=== PATIENT | male | born 1980 | race Caucasian/White ===

== ENCOUNTER 2018-03-16 07:36 | Emergency (ER) | payer MEDICAID, OTHER ==
[2018-03-16 07:41] VITALS: RESP 16
[2018-03-16] MEDS ORDERED: ORPHENADRINE 30 MG/ML 2 ML VIAL IM STA (08:09)
[2018-03-16] MEDS ORDERED: KETOROLAC 30 MG/ML 1 ML VIAL IM STA (08:09)
--- NOTE | 2018-03-16 08:12 | ED ---
Extremity Problem HPI - General Chief complaint: Extremity Problem,Nontraumatic Stated complaint: lt leg pain Time Seen by Provider: 03/16/18 07:59 Source: patient, RN notes reviewed, old records reviewed Mode of arrival: wheelchair Limitations: no limitations - History of Present Illness Initial comments: 37-year-old male presents emergency room today chief complaint of left leg pain. Reports his been going on for the past 2 weeks. Patient states it feels like there is a clenching sensation in the back of his leg. Patient reports that he's had no major swelling. Seems to be worse over the past day. He's been taking Motrin which has some relief. No falls or trauma. No history of back pain. Pain seems to be exacerbated with movement. He reports the pain shoots down the back of her leg into the calf. Patient reports no history of blood clots.Patient denies any recent fever, chills, shortness of breath, chest pain, back pain, abdominal pain, nausea vomiting, numbness or tingling, dysuria or hematuria, constipation or diarrhea, headaches or visual changes, or any other current symptoms - Related Data Home Medications Medication Instructions Recorded Confirmed Ibuprofen [Motrin Ib] 400 mg PO Q6H PRN 03/16/18 03/16/18 Previous Rx's Medication Instructions Recorded Cyclobenzaprine [Flexeril] 10 mg PO TID #12 tab 03/16/18 Dexamethasone 0.75 mg PO DAILY #12 tab 03/16/18 traMADol HCl [Ultram] 50 mg PO Q6HR PRN 3 Days #12 tab 03/16/18 Allergies Allergy/AdvReac Type Severity Reaction Status Date / Time No Known Allergies Allergy Verified 03/16/18 09:37 Review of Systems ROS Statement: Those systems with pertinent positive or pertinent negative responses have been documented in the HPI. ROS Other: All systems not noted in ROS Statement are negative. Past Medical History Past Medical History: Diabetes Mellitus Additional Past Medical History / Comment(s): kidney stones History of Any Multi-Drug Resistant Organisms: None Reported Past Surgical History: No Surgical Hx Reported Past Psychological History: No Psychological Hx Reported Smoking Status: Never smoker Past Alcohol Use History: None Reported Past Drug Use History: None Reported General Exam - General Exam Comments Initial Comments: 37-year-old male. Alert and oriented. No acute distress. Limitations: no limitations General appearance: alert, in no apparent distress Head exam: Present: atraumatic, normocephalic, normal inspection Eye exam: Present: normal appearance, PERRL, EOMI. Absent: scleral icterus, conjunctival injection, periorbital swelling ENT exam: Present: normal exam, normal oropharynx, mucous membranes moist Neck exam: Present: normal inspection. Absent: tenderness, meningismus, lymphadenopathy Respiratory exam: Present: normal lung sounds bilaterally. Absent: respiratory distress, wheezes, rales, rhonchi, stridor Cardiovascular Exam: Present: regular rate, normal rhythm, normal heart sounds. Absent: systolic murmur, diastolic murmur, rubs, gallop, clicks GI/Abdominal exam: Present: soft, normal bowel sounds. Absent: distended, tenderness, guarding, rebound, rigid Extremities exam: Present: normal inspection, full ROM, normal capillary refill. Absent: tenderness, pedal edema, joint swelling, calf tenderness Left Upper Leg exam: Present: tenderness (Over the posterior aspect of the thigh.). Absent: normal inspection Knee exam: Present: normal inspection, tenderness (Popliteal fossa.) Lower Leg exam: Present: normal inspection, full ROM Ankle exam: Present: normal inspection, full ROM Neurovascular tendon exam: Present: no vascular compromise Back exam: Present: normal inspection Neurological exam: Present: alert, oriented X3, CN II-XII intact Psychiatric exam: Present: normal affect, normal mood Course Vital Signs 03/16/18 03/16/18 07:39 10:18 Temperature 98.5 F 97 F L Pulse Rate 75 64 Respiratory 16 16 Rate Blood Pressure 140/75 125/66 O2 Sat by Pulse 99 98 Oximetry Medical Decision Making - Medical Decision Making 37-year-old male presents emergency room today chief complaint of left leg pain. Reports his been going on for the past 2 weeks. Patient states it feels like there is a clenching sensation in the back of his leg. Patient reports that he's had no major swelling. Seems to be worse over the past day. He's been taking Motrin which has some relief. No falls or trauma. No history of back pain. Denies saddle anesthesias, denies peripheral paresthesias. Patient has normal pulses and full ROM of left leg, pain is worse with movement. Patient underwent US which is negative for DVt. Patient pain seems to be similiar to sciatic nerve pattern, lumar spine xray obtained and shows evidence of DDD. Patient informed of results. REports some improvement after toradol and norflex. Will DC with spine specialty referral and with pain and muslce relaxer medication. Return parameters discussed. - Radiology Data Radiology results: report reviewed US is negative for DVT. Lumbar spine xray shows diffuse DDD. 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 Patient recommended do heat and ice to the back of the leg and spine. Return to emergency department if any alarming signs or symptoms occur. Take the medication as prescribed. Prescriptions: Cyclobenzaprine [Flexeril] 10 mg PO TID #12 tab Dexamethasone 0.75 mg PO DAILY #12 tab traMADol HCl [Ultram] 50 mg PO Q6HR PRN 3 Days #12 tab PRN Reason: Pain Is patient prescribed a controlled substance at d/c from ED?: No When asked, does pt state using other controlled substances?: No If prescribed controlled substance>3 days was MAPS reviewed?: No If opioid is for acute pain is fill amount 7 days or less?: No If Rx opioid, was Start Talking consent form obtained?: No Referrals: None,Stated [Primary Care Provider] - 1-2 days Amador Spain MD [STAFF PHYSICIAN] - 1-2 days Time of Disposition: 09:55
--- NOTE | 2018-03-16 09:13 | US ---
EXAMINATION TYPE: US venous doppler duplex LE LT DATE OF EXAM: 03/16/2018 8:58 AM COMPARISON: NONE CLINICAL HISTORY: 37-year-old male Pain. Left leg pain x 2-3 weeks but has been getting worse. No sw elling or redness. No hx of blood clots. No blood thinners. No injury. SIDE PERFORMED: Left TECHNIQUE: The lower extremity deep venous system is examined utilizing real time linear array sonog [place] with graded compression, doppler sonography and color-flow sonography. FINDINGS: VESSELS IMAGED: External Iliac Vein (EIV) Common Femoral Vein Deep Femoral Vein Greater Saphenous Vein * Femoral Vein Popliteal Vein Small Saphenous Vein * Proximal Calf Veins (* superficial vessels) Left Leg: Negative for DVT IMPRESSION: No evidence for DVT within the left lower extremity imaged from the groin to the upper calf.
--- NOTE | 2018-03-16 09:29 | XR ---
Lumbar spine HISTORY: Pain, Left leg pain 3 views of the lumbar spine No comparisons Lumbar vertebral bodies show preserved height, alignment, and bone mineralization. Loss of disc heigh t present at L5-S1. Mild spondylosis. Sclerosis present in the posterior elements suggests facet arth ropathy. Superior endplate deformity of L2 may represent Schmorl's node. Loss of disc height also pre sent L1-2. IMPRESSION: Degenerative disc disease and facet arthropathy.
[2018-03-16] MEDS ORDERED: CYCLOBENZAPRINE 10MG STARTER 3 TAB BTL PO STA (10:03)
[2018-03-16] MEDS ORDERED: traMADol 50 MG STARTER PACK 3 TAB BTL PO STA (10:03)
[2018-03-16 10:19] VITALS: BP 125/66; PULSE 64; TEMP 97
== END 2018-03-16 10:23 | disposition home or self-care (01) ==
LOC: EC 07:36
DX: M51.16 Intervertebral disc disorders with radiculopathy, lumbar region (principal); Z87.442 Personal history of urinary calculi
CPT/HCPCS: 72100; 93971; 99284; 96372 ×2; J2360; J1885

== ENCOUNTER → 2018-03-20 | Outpatient (CLI) | payer MEDICAID ==
--- NOTE | 2018-03-21 10:06 | MR ---
EXAMINATION TYPE: MR lumbar spine wo con DATE OF EXAM: 03/20/2018 COMPARISON: Plain film 03/16/2018 HISTORY: Left leg pain/ low back pain x3 weeks TECHNIQUE: Multiplanar, multisequence images of the lumbar spine were acquired. L1-L2: Loss of disc height signal is compatible with disc desiccation and degenerative disc disease, there is mild Schmorl node formation, no significant foraminal encroachment, mild anterior mass effec t on the thecal sac L2-L3: Loss of disc height and signal is present compatible with disc desiccation and degenerative di sc disease, posterior broad-based disc bulge causes anterior mass effect on the thecal sac, mild cent ral canal stenosis. No significant foraminal encroachment. L3-L4: Posterior broad-based disc bulge causes mild anterior mass effect on the thecal sac. No signif icant foraminal encroachment or central stenosis. There is some facet arthropathy change. L4-L5: Posterior broad-based disc bulge causes minimal anterior mass effect on the thecal sac. Facet arthropathy with hypertrophy ligamentum flavum encroaches on the lateral recesses. L5-S1: There is loss of disc height and signal at L5-S1, left lateral disc herniation causes anterola teral mass effect on the thecal sac, left S1 nerve root. No significant central canal stenosis. Lumbar segments are intact. No paraspinal masses are identified. Conus medullaris has a normal appe arance. There is a spinal curvature. IMPRESSION: Disc herniation, correlate for left S1 radiculopathy. Multilevel degenerative disc disease, facet art hropathy.
== END | disposition home or self-care (01) ==
LOC: RADMRIMAIN 20:21
PROVIDERS: ATTEND Orthopaedic Surgery Orthopaedic Surgery of the Spine
DX: M51.27 Other intervertebral disc displacement, lumbosacral region (principal); M51.36 Other intervertebral disc degeneration, lumbar region; M46.96 Unspecified inflammatory spondylopathy, lumbar region
CPT/HCPCS: 72148

== ENCOUNTER 2019-04-15 11:00 | Emergency (ER) | payer MEDICAID, OTHER ==
[2019-04-15 11:06] VITALS: BP 141/91; PULSE 79; RESP 18; TEMP 97.9
[2019-04-15] MEDS ORDERED: DIPH,PERTUS(ACELL)TETVAC-LF 0.5 ML VIAL IM ONE (11:10)
[2019-04-15] MEDS ORDERED: WATER FOR IRRIG, STERILE 1,000 ML BTL IRRIGATION ONE (11:10)
[2019-04-15] MEDS ORDERED: LIDOCAINE 1% INJ 10MG/ML (20 ML MDV) SQ STA (11:10)
--- NOTE | 2019-04-15 12:03 | ED ---
General Adult HPI - General Chief complaint: Wound/Laceration Stated complaint: [facility] - finger lac Time Seen by Provider: 04/15/19 11:07 Source: patient, RN notes reviewed, old records reviewed Mode of arrival: ambulatory Limitations: no limitations - History of Present Illness Initial comments: 39-year-old male patient, no pertinent past medical history presents to ED with right thumb laceration. Patient works a he was using a razor blade to cut a car decal when slipped slicing the thumb pad of his right hand. Patient reports that razor blade did not break. Patient did not know date of last tetanus shot. Patient denies any other complaints at this time. Systemic: Pt denies fatigue, fever/chills, rash. Pt denies weakness, night sweats, weight loss. Neuro: Pt denies headache, visual disturbances, syncope or pre-syncope. HEENT: Pt denies ocular discharge or irritation, otalgia, rhinorrhea, pharyngitis or notable lymphadenopathy. Cardiopulmonary: Pt denies chest pain, SOB, heart palpitations, dyspnea on exertion. Abdominal/GI: Pt denies abdominal pain, n/v/d. : Pt denies dysuria, burning w/ urination, frequency/urgency. Denies new onset urinary or bowel incontinence. MSK: Pt denies myalgia, loss of strength or function in extremities. Neuro: Pt denies new onset weakness, paresthesias. - Related Data Home Medications Medication Instructions Recorded Confirmed Ibuprofen [Motrin Ib] 400 mg PO Q6H PRN 03/16/18 03/16/18 Previous Rx's Medication Instructions Recorded Cyclobenzaprine [Flexeril] 10 mg PO TID #12 tab 03/16/18 Dexamethasone 0.75 mg PO DAILY #12 tab 03/16/18 traMADol HCl [Ultram] 50 mg PO Q6HR PRN 3 Days #12 tab 03/16/18 Allergies Allergy/AdvReac Type Severity Reaction Status Date / Time No Known Allergies Allergy Verified 04/15/19 11:06 Review of Systems ROS Statement: Those systems with pertinent positive or pertinent negative responses have been documented in the HPI. ROS Other: All systems not noted in ROS Statement are negative. Past Medical History Past Medical History: Diabetes Mellitus Additional Past Medical History / Comment(s): kidney stones History of Any Multi-Drug Resistant Organisms: None Reported Past Surgical History: Back Surgery Past Psychological History: No Psychological Hx Reported Smoking Status: Never smoker Past Alcohol Use History: None Reported Past Drug Use History: None Reported General Exam - General Exam Comments Initial Comments: Constitutional: NAD, AOX3, Pt has pleasant affect. HEENT: NC/AT, trachea midline, neck supple, no lymphadenopathy. Posterior pharynx non erythematous, without exudates. External ears appear normal, without discharge. Mucous membranes moist. Eyes PERRLA, EOM intact. There is no scleral icterus. No pallor noted. Cardiopulmonary: RRR, no murmurs, rubs or gallops, no JVD noted. Lungs CTAB in anterior and posterior araya. No peripheral edema. Abdominal exam: Abdomen soft and non-distended. Abdomen non-tender to palpation in all 4 quadrants. Bowel sounds active in LLQ. No hepatosplenomegaly. No ecchymosis Neuro: CN II-XII grossly intact. No nuchal rigidity. No raccon eyes, no kessler sign, no hemotympanum. No cervical spinal tenderness. MSK: 2 cm laceration to the pad of right thumb. Full active range of motion of digit. Cap refill less than 2 seconds. Sensation intact. Approximately 3 simple interrupted sutures. Vigorously irrigated with 500 mL normal saline. No posterior calf tenderness bilaterally, homans sign negative bilaterally. Posterior tibialis and radial pulse +2 bilaterally. Sensation intact in upper and lower extremities. Full active ROM in upper and lower extremities, 5/5 stregnth. Limitations: no limitations Course Vital Signs 04/15/19 11:04 Temperature 97.9 F Pulse Rate 79 Respiratory 18 Rate Blood Pressure 141/91 O2 Sat by Pulse 99 Oximetry Procedures - Laceration Laceration #1 Consent Obtained: verbal consent Indication: laceration Site: hand (L thumb pad) Size (cm): 2 Description: linear Depth: simple, single layer Anesthetic Used: lidocaine 1% Anesthesia Technique: local infiltration Amount (mls): 4 Pre-repair: wound explored, irrigated extensively (500mL NS ), deep structures intact (no ligamentous, osseous involvement, no foreign body) Type of Sutures: nylon Size of Sutures: 5-0 Number of Sutures: 3 Patient Tolerated Procedure: well, no complications Medical Decision Making - Medical Decision Making 39-year-old male patient presents to ED with chief complaint of thumb laceration. Patient also in stable, afebrile. Laceration approximated 3 simple interrupted sutures. Vigorously irrigated with 500 mL normal saline. Tetanus updated. Patient discharged with return precautions, return 710 days for suture removal. Case discussed with Dr. Serrato. Disposition Clinical Impression: Laceration Disposition: HOME SELF-CARE Condition: Stable Instructions (If sedation given, give patient instructions): Laceration (ED) Additional Instructions: Patient to adhere to previously discussed treatment plan and will take medication(s) as directed. Patient to follow up with PCP in 1-2 days. Patient to return to ED if symptoms do not improve. Please return for suture removal: Hand: 7-10 days Face: 5 days Chest/abdomen: 12-14 days Extremities: 7-10 days Scalp: 7 days Eyebrow: 5-7 days Foot/sole: 12-14 days Please monitor for signs and symptoms of infection including: redness, warmth, drainage, discharge. Please return to ED if these signs or symptoms occur, new signs or symptoms develop or if condition worsens in anyway. Is patient prescribed a controlled substance at d/c from ED?: No Referrals: None,Stated [Primary Care Provider] - 1-2 days
== END 2019-04-15 12:14 | disposition home or self-care (01) ==
LOC: EC 11:00
DX: S61.011A Laceration without foreign body of right thumb without damage to nail, initial encounter (principal); Z23 Encounter for immunization; W26.8XXA Contact with other sharp object(s), not elsewhere classified, initial encounter; Y93.89 Activity, other specified; Y92.69 Other specified industrial and construction area as the place of occurrence of the external cause; Y99.0 Civilian activity done for income or pay
CPT/HCPCS: 90715; 99283; 12001; 90471; J2001

== ENCOUNTER → 2022-06-21 | Outpatient (CLI) | payer MEDICAID ==
[2022-06-21 11:12] LABS: African American GFR (CKD) 121.7 (60.0-200.0); BUN/Creat Ratio 12.56 Ratio (12.00-20.00); Blood Urea Nitrogen 11.3 mg/dL (9.0-27.0); Calcium 9.7 mg/dL (8.7-10.3); Carbon Dioxide 25.8 mmol/L (20.0-27.5); Chloride 104 mmol/L (96-109); Chol/HDL Ratio 1.75 Ratio; Glucose 99 mg/dL (70-110); LDL Cholesterol,Calculated 21.3 mg/dL (0.0-131.0); Potassium 4.4 mmol/L (3.5-5.5); Sodium 141 mmol/L (135-145); VLDL Calculation 12.38 mg/dL (5.00-40.00)
[2022-06-21 23:26] LABS: Microalbumin Creatinine Ratio <30 mg/g Creat (0-30)
== END | disposition home or self-care (01) ==
LOC: LABWHC1 07:48
PROVIDERS: ATTEND Family Medicine
DX: E11.9 Type 2 diabetes mellitus without complications (principal); E78.5 Hyperlipidemia, unspecified
CPT/HCPCS: 36415; 80048; 80061; 82043; 82570; 83036

== ENCOUNTER → 2025-04-22 | Outpatient (CLI) | payer OTHER ==
--- NOTE | 2025-04-22 09:29 | XR ---
EXAMINATION TYPE: XR ankle complete LT DATE OF EXAM: 04/22/2025 COMPARISON: NONE HISTORY: Pain, TECHNIQUE: 3 views of the left ankle are submitted for evaluation. FINDINGS: There is no evidence for fracture or dislocation. Ankle mortise is intact. Mild soft tissue swelling the ankle. Posterior calcaneal enthesophyte. IMPRESSION: 1. No evidence for acute fracture. 2. Mild soft tissue swelling of the ankle. [facility], , 04/22/2025 9:27 AM
== END | disposition home or self-care (01) ==
LOC: RADXRMAIN 08:59
PROVIDERS: ATTEND Family Medicine
DX: M25.572 Pain in left ankle and joints of left foot (principal); M25.472 Effusion, left ankle